=== PATIENT | female | born 1985 | race Caucasian/White ===

== ENCOUNTER 2017-06-01 13:08 | Emergency (ER) | payer SELFPAY ==
[~2017-06-01] VITALS: Ht 162.6 cm; Wt 109.0 kg
[2017-06-01] MEDS ORDERED: KETOROLAC 30MG/ML VIAL IV STA (17:28)
[2017-06-01] MEDS ORDERED: SODIUM CHLORIDE 0.9% 1,000 ML IV ONE (17:28)
[2017-06-01 17:46] LABS: CLARITY URINE CLEAR (CLEAR); COLOR URINE YELLOW (YELLOW); GLUCOSE URINE NEGATIVE (NEGATIVE); KETONES URINE NEGATIVE (NEGATIVE); LEUKOCYTE ESTERASE URINE NEGATIVE (NEGATIVE); NITRITE URINE NEGATIVE (NEGATIVE); OCCULT BLOOD URINE 2+ (NEGATIVE); PH URINE 5.5 (4.5-8.0); PROTEIN URINE NEGATIVE (NEGATIVE); UROBILINOGEN URINE 0.2 E.U./dL (0.2-1.0)
[2017-06-01 17:56] LABS: *BARBITURATES SCREEN URINE NEGATIVE (NEGATIVE); *BENZODIAZEPINES SCREEN URINE NEGATIVE (NEGATIVE); *COCAINE SCREEN URINE NEGATIVE (NEGATIVE); METHADONE URINE SCREEN NEGATIVE (NEGATIVE); OPIATES URINE SCREEN NEGATIVE (NEGATIVE); PHENCYCLIDINE URINE SCREEN NEGATIVE (NEGATIVE)
[2017-06-01 17:59] LABS: *AMPHETAMINES SCREEN URINE PRESUMTIVE POSITIVE (NEGATIVE); CANNABINOID URINE SCREEN PRESUMTIVE POSITIVE (NEGATIVE)
[2017-06-01 18:08] LABS: BASOPHILS % 0.6 % (0.0-2.0); EOSINOPHILS % 1.6 % (0.0-5.0); HEMATOCRIT. 35.2 % (36.0-48.0); LYMPHOCYTES % 37.8 % (20.0-50.0); MEAN CORPUSCULAR HEMOGLOBIN 28.4 pg (28.0-32.0); MEAN CORPUSCULAR VOLUME 83.3 fL (81.0-99.0); MEAN PLATELET VOLUME 9.4 fl (7.4-10.4); MONOCYTES % 7.8 % (2.0-8.0); NEUTROPHILS % 52.2 % (40.0-76.0); PLATELET 229 x1000/uL (130-400); RED BLOOD CELL COUNT 4.22 mill/uL (4.2-5.4); RED CELL DISTRIBUTION WIDTH 12.9 % (11.6-14.6)
[2017-06-01 18:12] LABS: CHLORIDE 105 mEq/L (98-107); INR 1.1; PROTHROMBIN TIME 11.1 sec (9.4-11.6)
[2017-06-01 18:17] LABS: CARBON DIOXIDE 27 mEq/L (21-32)
[2017-06-01 22:15] VITALS: BP 122/80
== END 2017-06-01 22:30 | disposition home or self-care (01) ==
LOC: ER 13:08
DX: R10.13 Epigastric pain (principal); F12.10 Cannabis abuse, uncomplicated; R11.2 Nausea with vomiting, unspecified; R19.7 Diarrhea, unspecified; Z98.890 Other specified postprocedural states
CPT/HCPCS: 36415; 74176; 80053; 80305; 81001; 81025; 83690; 85025; 85610; 96361; 96374; 99285; J1885; J7030; Z7610